=== PATIENT | female | born 1980 | race Caucasian/White ===

== ENCOUNTER 2020-07-27 05:57 | Day surgery (SDC) | payer BC, SELFPAY ==
--- NOTE | 2020-07-10 17:04 | PCM.HPOB.BLA ---
- Problem List (1) Menorrhagia Status: Acute (2) Uterine polyp Status: Acute History and Physical Date of Admission: 07/27/20 DATE OF SERVICE: July 10, 2020 ? PROBLEM:?Menorrhagia, uterine polyp ? DIAGNOSIS:?Menorrhagia, uterine polyp ? SUBJECTIVE:?Regular cycles. Menorrhagia. Currently sexually active, and using condoms for control. LMP 06/29/2020.?Would like control.? ? PAST SURGICAL HISTORY:? PAST SURGICAL HISTORY PAST SURGICAL HISTORY Procedure Laterality Date ? PAST SURGICAL HISTORY OF ? ? ? tooth extraction ? ? PAST MEDICAL HISTORY:? PAST MEDICAL HISTORY PAST MEDICAL HISTORY Diagnosis Date ? NEGATIVE MEDICAL HISTORY ? ? ? SOCIAL HISTORY:? SOCIAL HISTORY Social History ? Tobacco Use ? Smoking status: Never Smoker ? Smokeless tobacco: Never Used Substance Use Topics ? Alcohol use: Yes ? ? Comment: occasional ? Drug use: Never ? ? Allergies: No Known Allergies ? Current Outpatient Medications on File Prior to Visit Medication Sig ? cetirizine-pseudoephedrine (ZYRTEC-D) 5-120 mg per tablet Take 1 tablet by mouth twice daily. ? Fe gluconate/vit C/folic acid (IRON-C ORAL) Take by mouth. ? ascorbic acid (VITAMIN C ORAL) Take by mouth. ? No current facility-administered medications on file prior to visit. ? Pelvic US: Impression Normal appearing anteverted uterus that measures 105 mm x 50 mm x 67 mm. The central endometrial complex measures 15.9 mm in combined thickness. There are two likely polyps noted, either in lower uterine segment or cervical in location. The left ovary is not visualized. The right ovary is normal appearing. There is no free fluid visualized in the peritoneal cavity. Recommendations Consider hysteroscopic evaluation and management of intracavitary lesion if clinically indicated. ? OBJECTIVE: ? VITALS:? BP 120/80 ? Pulse 86 ? Resp 16 ? Ht 5' 5 (1.651 m) ? Wt 225 lb (102.1 kg) ? LMP 06/01/2020 ? BMI 37.44 kg/m? ? HEENT: ?Normocephalic, atraumatic, Mucus membranes moist without lesions. ? NECK: ???Soft and Supple. ?No adenopathy , thyromegaly or bruits. ? SKIN: No lesions. ? CHEST: Clear to auscultation. ?No wheezes or rales. ?Good air exchange. ? HEART: Regular rate and rhythm ?No S3 or S4. ?No gallops or rubs. ? BACK: Nontender with no CVA tenderness. ? ABDOMEN: Soft, non-tender, non-distended, no masses, no hepatosplenomegaly. ? ? LOWER EXTREMITIES: There was no pitting edema, no palpable cords and no skin changes. ? ASSESSMENT:?Menorrhagia, polyp ? PLAN:?Discussed there may not be a polyp at time of surgery. Discussed polypectomy may not improve menorrhagia. Discussed r/b/a and possible side effects of progesterone IUD, and pt desires placement at time of surgery. Discussed hysteroscopy, polypectomy, dilation and curettage, IUD placement.?The rationale for the proposed surgery was discussed in addition to risks, benefits, and alternatives. ?General pre- and post-operative care was reviewed. ?Questions were answered. ?After discussion, the patient indicated a desire to proceed with the planned surgery. ? Isa Chan,?DO
[2020-07-24 13:14] LABS: Absolute Lymphocyte Count 2.36 X10^3/uL (0.83-4.51); Absolute Neutrophil Count 6.3 X10^3/uL (2.0-7.7); Basophil# 0.04 X10^3/uL; Basophil% 0.4 % (0-1); Eosinophil# 0.45 X10^3/uL; Eosinophils% 4.6 % (0-5); Hematocrit 40.3 % (37-47); Hemoglobin 12.5 g/dL (12.0-15.0); Lymphocyte # 2.36 X10^3/ul (4.0); Mean Corpuscular Hgb 27.5 pg (27.0-32.0); Mean Corpuscular Volume 88.6 fL (81-99); Mean Platelet Vol. 11.4 fl (6.2-12.0); Monocyte# 0.63 X10^3/uL; Monocyte% 6.4 % (0-10); NRBC Flagged by Analyzer 0 % (0-5); Neutrophil % 64.2 % (47-70); Platelet Count 299 K/mm3 (150-450); RBC Distribution Width CV 13.7 % (11.6-14.6); RBC Distribution Width SD 44.4 fl (35.1-43.9); Red Blood Count 4.55 M/mm3 (4.2-5.4); White Blood Count 9.8 K/mm3 (4.4-11.0)
--- NOTE | 2020-07-27 | EMB_PTH ---
PATIENT: LIA LYONS LOC: [facility] [place] U#:[id number] AGE/SX: 39/F ROOM: RE07/27/[address]: Dr. Isa Chan DO : 1980 BED: DIS: 07/27/2020 SPEC #: [id number] RECD: 07/27/20 10:07 STATUS: ALEX SAM #: [id number] ARIE: 07/27/20 00:[address]: Isa Chan DEPT: SURGICAL PATHOLOGY RECD BY: Guido Rubi ENTERED: 07/27/20 10:07 SP TYPE: ENDOM BX/C PETROS DR: No Primary Care Phys Tissues: Endometrium, NOS Procedures: Surgery Specimen Level IV HEADER OPERATION: Hysteroscopy, Symphion, polypectomy, Mirena IUD insertion PRE-OP DIAGNOSIS: Dysfunctional uterine bleeding TISSUE SUBMITTED: Polypectomy and endometrial curettings MICROSCOPIC DIAGNOSIS Polypectomy and endometrial curettings: Secretory endometrium. Fragments of benign endocervical polyp. SJ:fatou 07/28/20 MICROSCOPIC DESCRIPTION Slides are reviewed. GROSS DESCRIPTION Received in fixative is one container labeled with the patient's name and designated polypectomy and endometrial curettings. The specimen consists of multiple irregular fragments of sousa-pink soft tissue mixed with hemorrhagic soft tissue that in aggregate measure 3 x 2.5 x 0.3 cm. The specimen is totally submitted in one cassette. / MONICA:fatou 07/27/20 TC:5 CPT: 04660
[2020-07-27 06:28] LABS: Internal QC Validated? YES +Cl - CLEAR BKGD; Pregnancy, Urine Negative Negative
[2020-07-27 06:52] VITALS: BP 113/75; PULSE 81; RESP 16; TEMP 37; O2SAT 98; BMI 35.6
[2020-07-27] MEDS: Lactated Ringers 1,000 ML 100 ML IV (06:52)
--- NOTE | 2020-07-27 07:25 | DCINST_ITS ---
Discharge Diet: No Restrictions Discharge Activity: Return to Normal Activity, May Drive - at least 24 hours after surgery May resume sexual activity in: 1 week - No tampons, intercourse, hot tubs, tub baths for 1 weeks Weight Bearing Status: Weight bearing as tolerated Lifting Restrictions: None Call your doctor if you observe: Fever of 101 or Higher, Inability to urinate, Inability to have a bowel movement, Using more than one pad per hour, Shortness of breath, Dizziness, Fainting spells, Swelling in the ankles, Chest pain, Increased palpitations (irregular heartbeat), Calf discomfort, Uncontrolled pain Allergies/Adverse Reactions: Allergies No Known Allergies Allergy (Verified 07/27/20 06:38) Medications to take at Discharge Cetirizine HCl/Pseudoephedrine [Zyrtec-D Tablet] 1 ea PO DAILY 07/20/20 Multivitamin with Minerals [Multiple Vitamin] 1 ea PO DAILY 07/20/20 Primary Care Physician: Care Physician,No Primary [Primary Care Provider] - Test Results: Test results from this visit will be discussed in further detail at your follow- up appointment, if applicable. Please Follow Up With: Isa Chan DO When: 1-2 weeks
[2020-07-27] MEDS: Lidocaine 1% (20 ml mdv) 20 ML Vial (07:41)
--- NOTE | 2020-07-27 08:02 | PCM.OPRPT ---
Problem List (1) Menorrhagia Status: Acute (2) Uterine polyp Status: Acute Report of Operation Date of Procedure: 07/27/20 Pre-Operative Diagnosis: Menorrhagia, polyp Post-Operative Diagnosis: As above Surgery/Procedure Performed:: Hysteroscopy, dilation and curettage, polypectomy, Mirena IUD insertion Description of Surgical Findings:: Normal appearing uterine cavity and bilateral tubal ostia were visualized. There were 2 endocervical polyps noted. There were no polyps or fibroids within the uterine cavity. Good descent of uterus and cervix. Type of Anesthesia:: MAC Special Medications: None Specimen's removed: Polyp and endometrial curettings Drains: None Estimated Blood Loss (mL): < 50 cc Fluids Replaced: Deficit 100 cc Description of Procedure: Start time 0741 Stop time 0759 The patient was taken to the operating room where MAC anesthesia was found to be adequate. She was prepped and draped in the dorsal lithotomy position using yellowfin stirrups. A weighted speculum was placed to expose the cervix. The anterior lip of the cervix was grasped with a single-tooth tenaculum. The uterus was anteverted. There was good descent of the uterus and cervix. A paracervical block was performed using 1% lidocaine. The cervix was serially dilated to accommodate the hysteroscope. The hysteroscope was advanced to the fundus of the uterus using normal saline as distention media. The cavity was normal-appearing and bilateral tubal ostia were visualized. There were no polyps or fibroids noted within the uterine cavity. The hysteroscope was slowly removed through the endocervical canal. There were 2 cervical polyps noted. The hysteroscope was fully removed. Using polyp forceps and a ring forcep the 2 cervical polyps were removed. The polyps were sent to pathology for review. A sharp curettage was performed for a moderate amount of tissue and the endometrial curettings were sent to pathology for review. Bleeding was hemostatic. Uterus sounded to 9.5 cm. The Mirena IUD was placed in usual fashion and the IUD strings were trimmed to 2 cm in length. All instruments were removed from the vagina. Vaginal sweep was performed. Patient was taken to the recovery room in stable condition. Grafts/Implants Used: Mirena IUD - Complications None - Admit VTE Documentation VTE Present on Admission: No VTE Mechan Device Prophylaxis: SCD's
[2020-07-27 08:11] VITALS: BP 112/78; BP 113/75; PULSE 83; RESP 16; TEMP 36.4; O2SAT 94
[2020-07-27 08:15] VITALS: BP 105/76; BP 113/75; PULSE 82; RESP 16; O2SAT 95
[2020-07-27 08:21] VITALS: BP 109/70; BP 113/75; PULSE 84; RESP 16; O2SAT 96
[2020-07-27 08:25] VITALS: BP 113/75; BP 115/70; PULSE 78; RESP 16; TEMP 36.2; O2SAT 97
[2020-07-27 08:43] VITALS: BP 113/75
== END 2020-07-27 08:49 | disposition home or self-care (01) ==
LOC: SDC 05:57 → AC 05:58
PROVIDERS: Anesthesiology; Referring Provider Obstetrics & Gynecology; Visit Provider Obstetrics & Gynecology
PROC: 0UB98ZZ Excision of Uterus, Via Natural or Artificial Opening Endoscopic (ICD-10-PCS; CPT 58558; principal; 2020-07-27 07:15)
DX: N92.0 Excessive and frequent menstruation with regular cycle (principal); N84.1 Polyp of cervix uteri
CPT/HCPCS: 58300; 58558; 36415; 81025; 85025; 86850; 86900; 86901; 87426; 88305; C9803; J7120; J2405